=== PATIENT | male | born 1965 | race Caucasian/White ===

== ENCOUNTER 2019-10-26 07:41 | Outpatient (CLI) | payer OTHER, SELFPAY ==
--- NOTE | 2019-10-26 08:12 | XR_ITS ---
WS: [id number] ABDOMEN KUB CLINICAL INFORMATION: Renal/ureteral calculi. COMPARISON: October 12, 2019 FINDINGS: Stable right double-J ureteral stent. No visualized ureteral calculi. Pelvic phleboliths. Stable clus ters of subcentimeter right renal parenchymal calculi the largest calculus measuring 5.2 mm. XR/XR KUB [id number] Impression: 1. Right double-J ureteral stent in place. 2. Stable clusters right renal parenchymal calculi.
== END 2019-10-26 07:42 | disposition home or self-care (01) ==
PROVIDERS: Family Provider Family Medicine; Visit Provider Urology
DX: N20.0 Calculus of kidney (principal)
CPT/HCPCS: 74018

== ENCOUNTER 2019-10-26 11:42 | Day surgery (SDC) | payer OTHER, SELFPAY ==
[2019-10-26] VITALS (18 sets, daily range): BP systolic 128–171; BP diastolic 65–110; PULSE 71–88; RESP 12–19; TEMP 36.3–36.4; O2SAT 92–98; BMI 48.6
--- NOTE | 2019-10-26 12:39 | PM.HPUD ---
H&P update H&P Update: DATE OF SURGERY/PROCEDURE: 10/26/19 DATE H&P PERFORMED: 10/26/19 H&P UPDATE INFORMATION: H&P completed within last 30 days, No changes to prior documentation and H&P is in [facility] on date indicated PREOP DIAGNOSIS: Residual fragments right renal calculus PRIMARY INDICATION FOR PROCEDURE: Fragments still too large to pass although much less stone burden on sequential imaging PLANNED PROCEDURE: Operation Date: 10/26/19 14:05 Proposed Procedures p ESWL 50797 N20.0(Not Applicable) - Gray Artis MD Conscious Sedation: Patient reassessed prior to sedation, with no change noted: Yes Full H&P Perinent History: Medical/Surgical History: Medical History (Updated 10/26/19 @ 09:41 by Gray Artis MD) Renal calculus, right (Acute) Status post extracorporeal shock wave therapy (Acute) ESWL RIGHT SIDE WITH STENT PLACEMENT Ureteral calculus, right (Acute) Family History: Family History (Updated 10/26/19 @ 08:55 by Mari Zhang LPN) Father CAD (coronary artery disease) Diabetes Mother Hypertension Parkinsons disease Social History: Social History Smoking and tobacco status: former smoker Alcohol intake: never Adopted: No Caregiver/support person: No Lives independently: No Household members: spouse Marital status: Current occupational status: unemployed
[2019-10-26] MEDS: sodium chloride 0.9% 1,000 ML 30 ML IV (13:13)
--- NOTE | 2019-10-26 13:29 | ANES.PREANES ---
Pre-Anesthetic Assessment Pre-Anesthetic Assessment: Height/Weight: Height 1.7 m Weight 141.067 kg Preop Diagnosis: kidney stones Proposed Procedure: Operation Date: 10/26/19 14:05 Proposed Procedures p ESWL 82942 N20.0(Not Applicable) - Gray Artis MD Familial anesthetic complications: None Was Beta Piyush taken within 24 hours: N/A Last intake: Intake - Ate 1 egg at 0630 am today Last Liquid Date 10/26/19 Last Liquid Time 06:30 Last Solid Date 10/26/19 Last Solid Time 06:30 Social: Social History: No alcohol and No tobacco Exam: Pre-Anes Outpt Exam: alert, oriented x 3, clear to auscultation bilaterally and regular rate & rhythm Airway: Cervical ROM: WNL Additional comments: missing no uvulla History/ROS: No significant history except as noted Pulmonary: Pulmonary: Sleep apnea (cpap) CV/HEM: CV/HEM: HTN : : None reported Hepatic: Hepatic: None reported GI: GI: None reported Metabolic: Metabolic: Morbid obesity Musc/skel: Musc/skel: OA/DJD Neuropsych: Neuropsych: None reported Anesthetic Plan: ASA status: II Anesthesia: General Risk of > 500 ml blood loss (7ml/kg in children): No Meds/Allergies Current Medications: Current Medications Generic Name Dose Route Start Last Admin Trade Name Freq PRN Reason Stop Dose Admin Sodium Chloride 1,000 mls @ 30 ml s/hr 10/26/19 12:45 10/26/19 13:13 Sodium Chloride 0.9% IV 10/27/19 12:44 30 mls/hr .Q24H MARY Administration PFSH Anesthesia PFSH: Medical History (Updated 10/26/19 @ 09:41 by Gray Artis MD) Renal calculus, right (Acute) Status post extracorporeal shock wave therapy (Acute) ESWL RIGHT SIDE WITH STENT PLACEMENT Ureteral calculus, right (Acute) Surgical History (Updated 10/26/19 @ 09:41 by Gray Artis MD) History of lithotripsy (Acute) Social History Smoking and tobacco status: former smoker Alcohol intake: never Adopted: No Caregiver/support person: No Lives independently: No Household members: spouse Marital status: Current occupational status: unemployed Data Anesthesia Cardiac Studies: No Data to Display
--- NOTE | 2019-10-26 14:08 | PM.OP ---
Operative Report Post-Operative Note Date of procedure: 10/26/19 Preop Diagnosis: Residual right lower pole renal fragments following ESWL x2 Post-op diagnosis: same Post-op Findings: Same Procedure Done: Extracorporeal shockwave lithotripsy to remaining right renal calculi Implants: None Specimens removed/disposition: None Surgeon: Gray Artis Anesthesia: general Complications: None Findings: Excellent change with full complement of shocks Condition: stable Disposition: PACU Operative Report Brief History: Karlo is a very pleasant 54-year-old white male who presented with 2 stones in his right kidney one near the UPJ with symptoms in mid August and since that time is undergone 2 treatments with improvement but not resolution with each. He has passed a large amount of the stone burden but still has about 4 pieces 2 of which are probably too large to pass despite prolonged stenting. He is admitted today for hopefully final treatment to clear the remainder of the stones. Procedure: After routine preoperative evaluation examination and obtaining of informed consent he was taken to the operating suite on 10/26/2019 where general anesthesia was administered without difficulty after appropriate timeout was performed, SCDs confirmed to be functioning, preoperative antibiotics administered, beta-amisha protocol confirmed. Positioned on the Dornier unit such at the stone fragment cluster was at the focal point utilizing biplanar fluoroscopy with a shock head position anteriorly based on the patient's size. Shock therapy was initiated intensity of 1 and advance to an intensity of 4 with a several minute pause after about 300 shocks. Rate was initiated at 60 and advanced to 80 as change became evident. Position changes were made based on real-time fluoroscopic imaging. Change was noted early in the sequence of treatment. By the completion of the procedure there appeared to be no large remaining fragments identifiable. He tolerated the procedure well without complications and was awakened in the operating room and returned to the recovery in stable condition. PLANS: 1. Schedule follow-up for KUB and likely cystoscopy with stent removal.
--- NOTE | 2019-10-26 15:21 | SUR.PHASEI ---
1516 PATIENT TO PACU AT THIS TIME VIA GURNEY FROM OR. RR EVEN AND UNLABORED. PWD. PLACED ON SIMPLE MASK AT 8L, SPO2 98 %.
[2019-10-26] MEDS: fentaNYL 50 mcg/mL INJ 2mL IVP ×2 (15:30→15:37)
[2019-10-26] MEDS: morphine 4 mg/mL SDV 1 mL 2 MG IVP ×2 (15:48→15:52)
[2019-10-26] MEDS: HYDROmorphone 1 mg/mL INJ 1 mL 0.25 MG IVP (15:57)
--- NOTE | 2019-10-26 16:02 | SUR.PHASEI ---
[address] LAINEZ REGARDING PATIENT STILL CONTINUING TO HAVE PAIN 05/26, AFTER FENTANYL 100 MCG AND MORPHINE 4 MG. ORDERS TO GIVE 0.25 OF DILAUDID AND TO INSTRUCT PATIENT TO TAKE CHRONIC PAIN MEDS.
--- NOTE | 2019-10-26 16:07 | SUR.PHASEI ---
1605 PATIENT REPOSITIONED IN BED. IMPROVED PAIN FROM 8/10 TO 5/10.
--- NOTE | 2019-10-26 16:19 | SUR.PHASEI ---
3054 PATIENT TO OPS AT THIS TIME VIA [employer]. NO DISTRESS. PWD. PAIN 02/23.
== END 2019-10-26 17:16 | disposition home or self-care (01) ==
PROVIDERS: Family Provider Family Medicine; Visit Provider Urology
PROC: (CPT 50590; principal; 2019-10-26 14:05)
DX: N20.0 Calculus of kidney (principal); Z82.49 Family history of ischemic heart disease and other diseases of the circulatory system; Z83.3 Family history of diabetes mellitus; G47.30 Sleep apnea, unspecified; I10 Essential (primary) hypertension; M19.90 Unspecified osteoarthritis, unspecified site; E66.01 Morbid (severe) obesity due to excess calories; Z68.42 Body mass index [BMI] 45.0-49.9, adult; Z87.891 Personal history of nicotine dependence
CPT/HCPCS: 50590; 81001; J0330; J1100; J1170; J2001; J2270; J2405; J2704; J3010; J3490; J7030

== ENCOUNTER 2019-11-02 08:35 | Outpatient (CLI) | payer OTHER, SELFPAY ==
--- NOTE | 2019-11-02 08:30 | XR_ITS ---
WS: [id number] KUB, 11/02/2019 Clinical Data: RENAL CALCULUS Comparison: KUB, 10/26/2019 Findings: No abnormal intraabdominal masses are seen. There is no dilatated small bowel or evidence of obstruc tion. The ureteral catheter extending from the right renal pelvis to the bladder is seen. There are calcifi cations overlying the inferior aspect of the right kidney. Prostate calcifications are noted. There a re phleboliths in the true pelvis XR/XR KUB [id number] Impression: 1. Satisfactory right ureteral stent unchanged. 2. Right inferior renal calcifications unchanged.
== END 2019-11-02 08:36 | disposition home or self-care (01) ==
PROVIDERS: Family Provider Family Medicine; PCP Urology; Visit Provider Urology
DX: N20.0 Calculus of kidney (principal)
CPT/HCPCS: 74018

== ENCOUNTER 2020-04-14 08:58 | Outpatient (CLI) | payer OTHER, SELFPAY ==
--- NOTE | 2020-04-14 08:45 | XRR_ITS ---
PROCEDURE INFORMATION: Exam: XR Abdomen, 1 View Exam date and time: 04/14/2020 9:15 AM Age: 54 years old Clinical indication: Condition or disease; Kidney or ureter condition; Calculus (stone) in kidney; Patient HX: Stone follow up; RT renal stone. Previous films 11/02,10/26; Additional info: Kidney stone TECHNIQUE: Imaging protocol: XR of the abdomen. Views: Frontal supine view of the abdomen. 1 View. COMPARISON: CR XR KUB [id number] 11/02/2019 8:46 AM FINDINGS: Gastrointestinal tract: No dilated gas-filled loops of bowel. Intraperitoneal space: No radiopaque ureteral calculus is visualized. Organs: Difficult to exclude nephrolithiasis as a kidneys are partially obscured by enteric contents. Vasculature: Interval removal of the right double-J stent. Multiple phleboliths in the pelvis. Bones/joints: No acute osseous abnormality. XR/XR KUB [id number] IMPRESSION: 1. Difficult to exclude nephrolithiasis. 2. No radiopaque ureteral calculus visualized.
== END 2020-04-14 08:59 | disposition home or self-care (01) ==
LOC: RAD 08:59
PROVIDERS: Family Provider Family Medicine; PCP Family Medicine; Visit Provider Urology
DX: N20.0 Calculus of kidney (principal)
CPT/HCPCS: 74018

== ENCOUNTER → 2020-04-17 09:08 | Outpatient (BNVA) | payer OTHER, SELFPAY | PROVIDERS: Family Provider Family Medicine; PCP Family Medicine; Visit Provider Family Medicine | DX: I10 Essential (primary) hypertension (principal); M10.9 Gout, unspecified; R35.1 Nocturia | CPT/HCPCS: 80053; 80061; 82044; 83721; 84153; 84550; 85025 ==

== ENCOUNTER → 2020-05-16 09:53 | Outpatient (BNVA) | payer OTHER, SELFPAY | PROVIDERS: Family Provider Family Medicine; PCP Family Medicine; Visit Provider Family Medicine | DX: E78.5 Hyperlipidemia, unspecified (principal); Z13.6 Encounter for screening for cardiovascular disorders; R73.9 Hyperglycemia, unspecified; I10 Essential (primary) hypertension | CPT/HCPCS: 80053; 83036 ==

== ENCOUNTER 2020-05-27 08:34 | Day surgery (SDC) | payer OTHER, SELFPAY ==
[2020-05-26 07:10] VITALS: BMI 43.3
[2020-05-27 08:44] VITALS: BP 165/86; PULSE 70; RESP 18; TEMP 36.3; O2SAT 98
[2020-05-27] MEDS: sodium chloride 0.9% 1,000 ML 30 ML IV (09:01)
--- NOTE | 2020-05-27 09:19 | ANES.PREANE2 ---
Pre-Anesthetic Assessment Pre-Anesthetic Assessment: Height/Weight: Height 1.8 m Weight 141.067 kg Temp Pulse Resp BP Pulse Ox 97.3 F L 70 18 165/86 98 05/27/20 08:44 05/27/20 08:44 05/27/20 08:44 05/27/20 08:44 05/27/20 08:44 Preop Diagnosis: Residual right lower pole renal fragments following ESWL x2 Proposed Procedure: Operation Date: 05/27/20 10:00 Proposed Procedures p Excision Mouth Mass/Lesion Screws on mouth floor(Right) - Rich Sim MD Was Beta Piyush taken within 24 hours: N/A Last intake: Intake Last Liquid Date 05/26/20 Last Liquid Time 22:00 Last Solid Date 05/26/20 Last Solid Time 22:00 Social: Social History: No alcohol and No tobacco Exam: Pre-Anes Outpt Exam: alert and oriented x 3 Airway: Submandibular: WNL MP: 2 CV/HEM: CV/HEM: HTN Anesthetic Plan: ASA status: 3 Anesthesia: General Meds/Allergies Current Medications: Current Medications Generic Name Dose Route Start Last Admin Trade Name Freq PRN Reason Stop Dose Admin Sodium Chloride 1,000 mls @ 30 ml s/hr 05/27/20 07:30 05/27/20 09:01 Sodium Chloride 0.9% IV 05/28/20 07:29 30 mls/hr .Q24H MARY Administration PFSH Anesthesia PFSH: Medical History (Updated 05/16/20 @ 09:40 by Claire Crocker DO) Chronic low back pain Essential hypertension Gout Opioid dependence SKYLER (obstructive sleep apnea) Rectal fissure Renal calculus, right Status post extracorporeal shock wave therapy ESWL RIGHT SIDE WITH STENT PLACEMENT Ureteral calculus, right Surgical History H/O adenoidectomy History of lithotripsy History of resection of rectum History of uvulectomy Hx of tonsillectomy Family History Father CAD (coronary artery disease) Diabetes Mother Hypertension Parkinsons disease Social History Smoking and tobacco status: former smoker Alcohol intake: never Adopted: No Caregiver/support person: No Lives independently: No Household members: spouse Marital status: Current occupational status: unemployed Data Anesthesia Cardiac Studies: No Data to Display
--- NOTE | 2020-05-27 10:19 | W.PM.OPSUD ---
Surgery/Procedure H&P Update DATE OF PROCEDURE: May 27, 2020 DATE H&P PERFORMED: 05/23/20 H&P UPDATE INFORMATION: I have reviewed H&P completed within last 30 days, I have examined patient prior to procedure and No changes to prior documentation PREOP DIAGNOSIS: Partially extruded nonfunctional floor of mouth harware for removal PLANNED PROCEDURE: Operation Date: 05/27/20 10:00 Proposed Procedures p Excision Mouth Mass/Lesion Screws on mouth floor(Right) - Rich Sim MD
[2020-05-27 11:09] VITALS: BP 137/98; PULSE 64; RESP 16; TEMP 36.3; O2SAT 98
--- NOTE | 2020-05-27 11:12 | PM.OP ---
Operative Report Date of procedure: May 27, 2020 Pre-op Diagnosis: Partially extruded nonfunctional floor of mouth harware for removal Post-op diagnosis: same Post-op Findings: There was a small screw with an attached suture imbedded, but partially extruded into the floor of mouth. Procedure Done: Removal of partially extruded hardware/suture under anesthesia Implants: None Pathology: Floor of mouth soft tissue foreign body Surgeon: Rich Sim Manager Express: Marlee Hubbard Anesthesia: General Estimated blood loss (mL): 0 IV fluids (mL): 400 Complications: None Findings: Retained, partially extruded right floor of mouth screw/suture Condition: stable Disposition: PACU Brief History: 54 yo wm who underwent a tongue base suspension procedure many years ago who c/o a partially extruded right floor of mouth foreign body who desires removal under anesthesia. Procedure: The patient was identified in the preoperative holding area and was taken to the operating room where he was placed on the operating table in the supine position. Anesthesia was obtained with general nasotracheal anesthesia. The table was turned 90 degrees to the patient's left, and a Denhart retractor was placed in the patient's oral cavity. The tongue was retracted posteriorly and the floor of mouth was inspected with the findings noted above. The right floor of mouth foreign body, which was partially extruded, was grasped with a tenaculum and was removed without difficulty. There was no bleeding or other abnormalities after the removal. At this point the Denhart retractor was removed and the procedure was terminated and control of the patient was returned to anesthesia where he underwent an uneventful reversal of anesthesia and extubation and was taken to the recovery room in stable condition. There were no operative or anesthetic complications.
[2020-05-27 11:15] VITALS: BP 136/82; PULSE 56; RESP 14; O2SAT 100
[2020-05-27 11:20] VITALS: BP 134/76; PULSE 64; RESP 17; TEMP 36.3; O2SAT 96
[2020-05-27 11:29] VITALS: BP 126/84; PULSE 59; RESP 18; TEMP 36.6; O2SAT 95
[2020-05-27 11:46] VITALS: BP 132/80; PULSE 57; RESP 18; TEMP 36.6; O2SAT 97
== END 2020-05-27 12:05 | disposition home or self-care (01) ==
PROVIDERS: PCP Family Medicine; Visit Provider Specialist
PROC: (CPT 40804; principal; 2020-05-27 10:00)
DX: M79.5 Residual foreign body in soft tissue (principal); I10 Essential (primary) hypertension; G47.33 Obstructive sleep apnea (adult) (pediatric)
CPT/HCPCS: 40804; 12345; 88300; J3010; J7030

== ENCOUNTER → 2020-08-29 14:40 | Outpatient (BNVA) | payer OTHER, SELFPAY | PROVIDERS: PCP Family Medicine; Visit Provider Family Medicine | DX: E11.9 Type 2 diabetes mellitus without complications (principal); E78.5 Hyperlipidemia, unspecified | CPT/HCPCS: 80053; 80061; 83036 ==

== ENCOUNTER → 2021-02-05 10:39 | Outpatient (BNVA) | payer OTHER, SELFPAY | PROVIDERS: PCP Family Medicine; Visit Provider Family Medicine | DX: E11.9 Type 2 diabetes mellitus without complications (principal) | CPT/HCPCS: 80053; 82043; 83036 ==

== ENCOUNTER → 2021-03-27 08:36 | Outpatient (BNVA) | payer OTHER, SELFPAY | PROVIDERS: PCP Family Medicine; Visit Provider Family Medicine | DX: E78.5 Hyperlipidemia, unspecified (principal); I10 Essential (primary) hypertension; E11.65 Type 2 diabetes mellitus with hyperglycemia; N50.89 Other specified disorders of the male genital organs | CPT/HCPCS: 80053; 80061; 83036; 85025 ==

== ENCOUNTER → 2021-07-10 12:02 | Outpatient (BNVA) | payer OTHER, SELFPAY | PROVIDERS: PCP Family Medicine; Visit Provider Family Medicine | DX: E78.5 Hyperlipidemia, unspecified (principal); E11.65 Type 2 diabetes mellitus with hyperglycemia; I10 Essential (primary) hypertension; Z68.39 Body mass index [BMI] 39.0-39.9, adult; F17.211 Nicotine dependence, cigarettes, in remission | CPT/HCPCS: 80053; 80061; 83036 ==

== ENCOUNTER → 2021-10-22 12:42 | Outpatient (BNVA) | payer OTHER, SELFPAY | PROVIDERS: PCP Family Medicine; Visit Provider Family Medicine | DX: E11.65 Type 2 diabetes mellitus with hyperglycemia (principal) | CPT/HCPCS: 80053; 83036 ==

== ENCOUNTER → 2022-04-22 13:19 | Outpatient (BNVA) | payer BC, SELFPAY | PROVIDERS: PCP Family Medicine; Visit Provider Family Medicine | DX: E11.65 Type 2 diabetes mellitus with hyperglycemia (principal); Z79.4 Long term (current) use of insulin | CPT/HCPCS: 80053; 82043; 83036 ==

== ENCOUNTER → 2022-10-21 10:34 | Outpatient (BNVA) | payer BC, SELFPAY | PROVIDERS: PCP Family Medicine; Visit Provider Family Medicine | DX: I10 Essential (primary) hypertension (principal); E11.9 Type 2 diabetes mellitus without complications; Z79.4 Long term (current) use of insulin; R35.1 Nocturia; E78.5 Hyperlipidemia, unspecified; N50.89 Other specified disorders of the male genital organs; E11.65 Type 2 diabetes mellitus with hyperglycemia | CPT/HCPCS: 80053; 80061; 82043; 83036; 84153; 85025 ==

== ENCOUNTER 2023-03-28 13:08 | Outpatient (CLI) | payer OTHER, SELFPAY ==
--- NOTE | 2023-03-28 13:28 | US_ITS ---
WS: [id number] TESTICULAR ULTRASOUND HISTORY: MASS OF LEFT TESTICLE COMPARISON: 03/06/2019 TECHNIQUE: Real-time and color Doppler imaging or utilized to perform a testicular ultrasound. Right testicle: 3.8 cm x 3.5 cm x 3.0 cm. Normal size and echogenicity. No mass or torsion. Normal color Doppler is present throughout. Systolic and diastolic velocities are both present. Small simple hydrocele. Right epididymis: There are multiple small cystic masses with low-level echoes adjacent to the RIGHT testicle. The largest mass is within the epididymis consistent with spermatoceles measuring 4 x 3 x 5 mm. Left testicle: 3.8 cm x 3.8 cm x 3.0 cm. Normal size and echogenicity. No mass or torsion. Normal color Doppler is present throughout. Systolic and diastolic velocities are both present. No significant hydrocele. Left epididymis: There are several cystic masses with low-level echoes along the expected location of the epididymis. The largest measures 4.3 x 3.8 x 5.2 cm. There are smaller masses along the epididym is. These masses were previously described in 2019. US/US scrotum [id number] IMPRESSION: 1. No testicular mass or torsion. 2. Bilateral epididymal spermatoceles, multiple. The largest throughout the LE FT epididymis. Described on the prior study from 2019.
== END 2023-03-28 13:09 | disposition home or self-care (01) ==
PROVIDERS: PCP Family Medicine; Visit Provider Family Medicine
DX: N43.42 Spermatocele of epididymis, multiple (principal); N43.2 Other hydrocele
CPT/HCPCS: 76870

== ENCOUNTER → 2023-04-21 09:02 | Outpatient (BNVA) | payer OTHER, SELFPAY | PROVIDERS: PCP Family Medicine; Visit Provider Family Medicine | DX: E78.5 Hyperlipidemia, unspecified (principal); E11.9 Type 2 diabetes mellitus without complications; Z79.4 Long term (current) use of insulin | CPT/HCPCS: 80053; 80061; 83036 ==

== ENCOUNTER → 2023-10-18 08:32 | Outpatient (BNVA) | payer OTHER, SELFPAY | PROVIDERS: PCP Family Medicine; Visit Provider Family Medicine | DX: E11.9 Type 2 diabetes mellitus without complications (principal); Z79.4 Long term (current) use of insulin; R35.1 Nocturia; I10 Essential (primary) hypertension | CPT/HCPCS: 80053; 80061; 82043; 83036; 84153; 85025 ==

== ENCOUNTER 2024-03-20 08:59 | Outpatient (CLI) | payer OTHER, SELFPAY ==
--- NOTE | 2024-03-20 09:07 | XR_ITS ---
WS: [id number] XR shoulder LT min 2V* [id number] REASON FOR EXAM: chronic left shoulder pain FINDINGS: No fracture or focal bone lesion. Moderate narrowing of the acromioclavicular joint with moderate subchondral sclerosis and marginal os teophytosis. The glenohumeral joint space is not well demonstrated but appears to be moderately narrowed. There is inferior subluxation of the humeral head with large osteophytosis. Moderate subchondral scle rosis of the glenoid. Minimal sclerosis in the biceps greater tuberosity. XR/XR shoulder LT min 2V* [id number] IMPRESSION: Moderate osteoarthritis in the acromioclavicular joint. Significant osteoarthritis in the glenohumeral joint. Joint space not well demo nstrated. Minimal rotator cuff tendon arthropathy.
== END 2024-03-20 09:00 | disposition home or self-care (01) ==
LOC: RAD 09:00
PROVIDERS: PCP Family Medicine; Visit Provider Family Medicine
DX: M19.012 Primary osteoarthritis, left shoulder (principal); M25.812 Other specified joint disorders, left shoulder; M25.712 Osteophyte, left shoulder
CPT/HCPCS: 73030; 80053; 83036

== ENCOUNTER → 2024-12-17 15:17 | Outpatient (BNVA) | payer OTHER, SELFPAY | PROVIDERS: PCP Family Medicine; Visit Provider Family Medicine | DX: E11.9 Type 2 diabetes mellitus without complications (principal); Z79.4 Long term (current) use of insulin; E78.5 Hyperlipidemia, unspecified; I10 Essential (primary) hypertension; Z12.5 Encounter for screening for malignant neoplasm of prostate; Z23 Encounter for immunization; Z12.11 Encounter for screening for malignant neoplasm of colon; Z12.12 Encounter for screening for malignant neoplasm of rectum; M10.9 Gout, unspecified; G47.33 Obstructive sleep apnea (adult) (pediatric); F17.211 Nicotine dependence, cigarettes, in remission; Z76.89 Persons encountering health services in other specified circumstances | CPT/HCPCS: 80053; 80061; 82043; 83036; 84443; 85025; G0103 ==

== ENCOUNTER → 2025-06-20 08:27 | Outpatient (BNVA) | payer OTHER, SELFPAY | PROVIDERS: PCP Family Medicine; Visit Provider Family Medicine | DX: Z12.5 Encounter for screening for malignant neoplasm of prostate (principal); E11.9 Type 2 diabetes mellitus without complications; Z79.4 Long term (current) use of insulin | CPT/HCPCS: 83036; G0103 ==